=== PATIENT | male | born 1940 | race Caucasian/White ===

== ENCOUNTER 2020-02-16 18:06 | Inpatient (IN) | payer MEDICARE ==
[~2020-02-16] VITALS: Ht 190.5 cm; Wt 106.7 kg
[2020-02-16 19:03] LABS: BASOPHILS ABSOLUTE AUTO 0.07 K/mm3 (0.00-0.23); BASOPHILS PERCENT AUTO 1 % (0-2); EOSINOPHILS ABSOLUTE AUTO 0.11 K/mm3 (0.00-0.68); EOSINOPHILS PERCENT AUTO 1 % (0-6); Hematocrit 33.7 % (37.0-53.0); Hemoglobin 9.7 g/dL (13.5-17.5); IMMATURE GRAN ABSOLUTE AUTO 0.14 K/mm3 (0.00-0.10); IMMATURE GRAN PERCENT AUTO 1 % (0-1); LYMPHOCYTES ABSOLUTE AUTO 1.21 K/mm3 (0.84-5.20); LYMPHOCYTES PERCENT AUTO 8 % (21-46); MONOCYTES ABSOLUTE AUTO 1.32 K/mm3 (0.16-1.47); MONOCYTES PERCENT AUTO 9 % (4-13); Mean Corpuscular HGB 24.1 pg (26.0-34.0); Mean Corpuscular HGB Conc 28.8 g/dL (31.5-36.5); Mean Corpuscular Volume 84 fL (80-100); Mean Platelet Volume 9.8 fL (9.1-12.4); NEUTROPHILS ABSOLUTE AUTO 11.78 K/mm3 (1.96-9.15); NEUTROPHILS PERCENT AUTO 80 % (41-73); Platelet Count 281 K/mm3 (150-400); RDW Coefficient Variation 16.8 % (11.7-14.2); RDW Standard Deviation 51.6 fL (35.1-46.3); Red Blood Cell Count 4.02 M/mm3 (4.30-5.90); White Blood Cell Count 14.63 K/mm3 (4.00-11.30)
[2020-02-16 19:29] LABS: Alanine Aminotransfer (ALT/SGP 9 U/L (12-78); Albumin, Blood 3.1 g/dL (3.4-5.0); Albumin/Globulin Ratio 0.5 (0.8-1.8); Alk Phos 88 U/L (50-136); Anion Gap 7 mmol/L (6-16); Aspartate Aminotrans (AST/SGOT 10 U/L (12-37); Bilirubin, Total 0.8 mg/dL (0.1-1.0); Blood Urea Nitrogen 19 mg/dL (8-24); Bun/Creatinine Ratio 6.1 (12.0-20.0); CO2, Blood 34 mmol/L (21-32); Calcium, Blood 9.5 mg/dL (8.5-10.1); Chloride, Blood 96 mmol/L (98-108); Creatinine, Blood 3.09 mg/dL (0.60-1.20); Ethanol (Alcohol), Blood, Med <3 mg/dL; Globulin, Blood 5.7 g/dL (2.2-4.0); Glomerular Filtration Rate 21 (60-); Glucose, Blood 140 mg/dL (70-99); Potassium, Blood 3.3 mmol/L (3.5-5.5); Sodium, Blood 137 mmol/L (136-145); Total Protein, Blood 8.8 g/dL (6.4-8.2); Troponin I <0.015 ng/mL (0.000-0.040)
[2020-02-16] MEDS ORDERED: JANTOVEN5 MG PO (20:54)
[2020-02-16] MEDS ORDERED: FINA5 PO (20:55)
[2020-02-16] MEDS ORDERED: LIPITOR80 MG PO (20:55)
[2020-02-16] MEDS ORDERED: RENVELA800 MG PO (20:56)
[2020-02-16] MEDS ORDERED: METOPROLOL SUCC25 MG PO (20:56)
[2020-02-16] MEDS ORDERED: TAMSULOSIN HCL0.4 M1 PO (20:56)
[2020-02-16 22:09] LABS: PCO2 Arterial 44.6 mmHg (35-45); PO2 Arterial 60.5 mmHg (80-100); pH Blood Arterial 7.51 (7.35-7.45)
--- NOTE | 2020-02-17 00:52 | NUR ---
NEW ADMIT PT ARRIVED TO FLOOR AT 0042 BY STRETCHER. SLID PT OVER VIA 3 PER TO NEW BED. SHOWED PT HOW TO USE CALL LIGHT.
[2020-02-17] MEDS ORDERED: WARF6 (01:03)
[2020-02-17 02:37] LABS: Source, Urine Catheter
[2020-02-17 02:39] LABS: Bilirubin, Urine Neg (Neg); Blood, Urine 3+ (Neg); Glucose Qualitative, Urine Neg (Neg); Ketones, Urine Neg (Neg); Leukocyte Esterase, Urine Neg (Neg); Nitrite, Urine Neg (Neg); Protein, Urine 3+ (Neg); Urobilinogen, Urine NORM (Normal)
--- NOTE | 2020-02-17 02:59 | NUR ---
0106 PT ARRIVED TO ROOM FROM ER VIA GURNEY IN STABLE CONDITION. PT REPORTS R FA PAIN EARLIER BUT NONE NOW. PT HAS A FISTULA IN THE RFA WITH A DRESSING ON IT. PT HAS A PD CATH IN ABD. PT IS AAO X 1-2. TELE AFIB. 3L O2 NC AT 98%. DENIES SOB. NO OTHER APPARENT SIGNS OF DISTRESS. CALL LIGHT IS IN REACH.
--- NOTE | 2020-02-17 03:01 | NUR ---
PT LYING IN BED, AWAKE, NO APPARENT SIGNS OF DISTRESS. CALL LIGHT IS IN REACH.
[2020-02-17 03:05] LABS: Appearance, Urine Clear (Clear); Color, Urine Yellow (P-Yellow)
[2020-02-17 03:14] LABS: Bacteria Rare /hpf; Squamous Epithelial Cells Rare /hpf (Few); White Blood Cells, Urine Rare /hpf (0-5)
[2020-02-17 03:20] LABS: U Amphetamine Screen Not Detected; U Barbituate Screen Not Detected; U Benzodiazapine Screen Not Detected; U Buprenorphine Screen Not Detected; U Cannabinoids Screen Not Detected; U Cocaine Screen Not Detected; U Methadone Screen Not Detected; U Methamphetamine Screen Not Detected; U Opiates Screen Not Detected; U Oxycodone Screen DETECTED; U Phencyclidine Screen Not Detected; U Propoxyphene Screen Not Detected
[2020-02-17 05:04] LABS: BASOPHILS ABSOLUTE AUTO 0.06 K/mm3 (0.00-0.23); BASOPHILS PERCENT AUTO 1 % (0-2); EOSINOPHILS ABSOLUTE AUTO 0.18 K/mm3 (0.00-0.68); EOSINOPHILS PERCENT AUTO 2 % (0-6); Hematocrit 31.3 % (37.0-53.0); Hemoglobin 9.1 g/dL (13.5-17.5); IMMATURE GRAN ABSOLUTE AUTO 0.12 K/mm3 (0.00-0.10); IMMATURE GRAN PERCENT AUTO 1 % (0-1); LYMPHOCYTES ABSOLUTE AUTO 1.94 K/mm3 (0.84-5.20); LYMPHOCYTES PERCENT AUTO 16 % (21-46); MONOCYTES ABSOLUTE AUTO 1.14 K/mm3 (0.16-1.47); MONOCYTES PERCENT AUTO 9 % (4-13); Mean Corpuscular HGB 24.1 pg (26.0-34.0); Mean Corpuscular HGB Conc 29.1 g/dL (31.5-36.5); Mean Corpuscular Volume 83 fL (80-100); Mean Platelet Volume 9.6 fL (9.1-12.4); NEUTROPHILS ABSOLUTE AUTO 8.81 K/mm3 (1.96-9.15); NEUTROPHILS PERCENT AUTO 72 % (41-73); Platelet Count 276 K/mm3 (150-400); RDW Coefficient Variation 16.9 % (11.7-14.2); Red Blood Cell Count 3.77 M/mm3 (4.30-5.90); White Blood Cell Count 12.25 K/mm3 (4.00-11.30)
[2020-02-17 05:29] LABS: Albumin, Blood 2.9 g/dL (3.4-5.0); Albumin/Globulin Ratio 0.5 (0.8-1.8); Bilirubin, Total 0.6 mg/dL (0.1-1.0); Bun/Creatinine Ratio 5.8 (12.0-20.0); Calcium, Blood 9.7 mg/dL (8.5-10.1); Creatinine, Blood 3.8 mg/dL (0.60-1.20); Globulin, Blood 5.5 g/dL (2.2-4.0); Potassium, Blood 3.5 mmol/L (3.5-5.5); Total Protein, Blood 8.4 g/dL (6.4-8.2)
--- NOTE | 2020-02-17 05:47 | NUR ---
PT IS AAO X 2-3, ON 3L O2 NC AT 93%. DENIED ANY DISCOMFORT FOR THIS SHIFT. TELE IS AFIB. FISTULA IN RFA AND PD CATH IN ABD.
--- NOTE | 2020-02-17 06:43 | NUR ---
PT LYING IN BED, EYES CLOSED, APPEARS TO BE RESTING. BREATHING IS EVEN, UNLABORED. NO APPARENT SIGNS OF DITRESS. CALL LIGHT IS IN REACH. NO OTHER CHANGES THIS SHIFT.
--- NOTE | 2020-02-17 11:03 | NUR ---
DISLYSIS PT KEPT FORGETTING TO LEAVE HIS ARM STILL. WHICH MADE THE MACHINE STOP AMD ALARM. WHICH CAUSED THE BLOOD TO START CLOTTING. DC'ED TX BEFORE IT CLOTTED COMPLETELY AND CAUSED HIM TO LOSE A UNIT OF BLOOD.
[2020-02-17 11:40] LABS: Vancomycin, Random 12.9 ug/mL
[2020-02-17 16:36] LABS: International Normalized Ratio 1.15; Prothrombin Time Results 12.2 Sec (9.7-11.5)
--- NOTE | 2020-02-17 17:43 | NUR ---
Spiritual care note: Mr. Luciano was very sleepy and had trouble staying awake. He denied pain. Per admit trigger, I offered prayer. I held his hand, providing comfort and prayer for healing. I am uncertain he knew I was there. I will remain available to pt and family.
--- NOTE | 2020-02-17 19:23 | NUR ---
SHIFT SUMMARY: PATIENT'S MENTATION HAS MUCH IMPROVED THROUGHOUT THE DAY. DENIES PAIN. NO EVENTS ON TELEMETRY, AFIB 80'S WITH FREQUENT PVC'S. COUMADIN HAS BEEN RE-STARTED. BLADDER SCAN THIS MORNING WAS 153 ML. STARTED ON RENAL DIET, TOLERATING WELL. HAS HOME CPAP, NEEDS TO BE SET UP BY RT. RENAL U/S TO BE COMPLETED THIS EVENING. GETTING UP TO BSC WITH 2 PERSON ASSIST. HAD LARGE BM TODAY. HAD VISIT BY CAREGIVER ZARA TODAY.
[2020-02-18 04:43] LABS: BASOPHILS ABSOLUTE AUTO 0.07 K/mm3 (0.00-0.23); BASOPHILS PERCENT AUTO 1 % (0-2); EOSINOPHILS ABSOLUTE AUTO 0.38 K/mm3 (0.00-0.68); EOSINOPHILS PERCENT AUTO 3 % (0-6); Hematocrit 28.9 % (37.0-53.0); Hemoglobin 8.6 g/dL (13.5-17.5); IMMATURE GRAN ABSOLUTE AUTO 0.12 K/mm3 (0.00-0.10); IMMATURE GRAN PERCENT AUTO 1 % (0-1); LYMPHOCYTES ABSOLUTE AUTO 1.75 K/mm3 (0.84-5.20); LYMPHOCYTES PERCENT AUTO 15 % (21-46); MONOCYTES PERCENT AUTO 12 % (4-13); Mean Corpuscular HGB 24.7 pg (26.0-34.0); Mean Corpuscular HGB Conc 29.8 g/dL (31.5-36.5); Mean Corpuscular Volume 83 fL (80-100); Mean Platelet Volume 9.9 fL (9.1-12.4); NEUTROPHILS ABSOLUTE AUTO 8.37 K/mm3 (1.96-9.15); NEUTROPHILS PERCENT AUTO 69 % (41-73); Platelet Count 260 K/mm3 (150-400); RDW Coefficient Variation 16.6 % (11.7-14.2); RDW Standard Deviation 50.2 fL (35.1-46.3); Red Blood Cell Count 3.48 M/mm3 (4.30-5.90); White Blood Cell Count 12.09 K/mm3 (4.00-11.30)
[2020-02-18 04:58] LABS: International Normalized Ratio 1.22; Prothrombin Time Results 12.9 Sec (9.7-11.5)
[2020-02-18 05:13] LABS: Albumin, Blood 2.7 g/dL (3.4-5.0); Anion Gap 5 mmol/L (6-16); Blood Urea Nitrogen 26 mg/dL (8-24); Bun/Creatinine Ratio 6.2 (12.0-20.0); CO2, Blood 34 mmol/L (21-32); Calcium, Blood 9.5 mg/dL (8.5-10.1); Chloride, Blood 96 mmol/L (98-108); Creatinine, Blood 4.16 mg/dL (0.60-1.20); Glomerular Filtration Rate 15 (60-); Glucose, Blood 90 mg/dL (70-99); Magnesium, Blood 2.3 mg/dL (1.6-2.4); Potassium, Blood 3.6 mmol/L (3.5-5.5); Sodium, Blood 135 mmol/L (136-145)
--- NOTE | 2020-02-18 07:59 | NUR ---
RUBBER AND PLASTICS WORKER SUMMARY Patient kept CPAP on all night, but still had problems with erratic breathing on a 6 liter bleed in. MD informed of Pal Perez breathing as well as gram positive cocci in clusters (*in both bottles). No new orders noted. Patient had no complaints of discomfort overnight
[2020-02-18 13:55] LABS: Vancomycin, Random 25.6 ug/mL
--- NOTE | 2020-02-18 14:41 | NUR ---
Echocardiogram completed.
--- NOTE | 2020-02-18 16:10 | NUR ---
HE HAS SLEPT, MOSTLY WITH HIS CPAP ON EXCEPT WHEN AWAKE TO EAT. HE IS ALSO HAVING A COGNITIVE EVALUATION NOW, AND HAS BEEN CONSULTED BY FOR A MARYJO TOMORROW D/T THE EARLIER ECHO RESULTS. HIS FIREND ZARA IS AT THE BEDSIDE. SHE HAS BEEN HIS CAREGIVER SINCE HE CANNOT TAKE CARE OF HIMSELF. HE HAS DENIED PAIN OR SOB. HE REQUIRES 3L NC THOUGH OR 5L BLEED IN TO HIS CPAP.
--- NOTE | 2020-02-18 18:25 | NUR ---
HE IS BACK IN BED AFTER DINNER. BED ALARM ON. HE HAD A CONSULT FROM TODAY D/T HIS ABNORMAL ECHO. PLAN FOR NPO AFTER MIDNIGHT AND MARYJO IN AM. NO FEVER.TELE AFIB. COUMADIN HELD D/T AM PROCEDURE. NO FISTULA TODAY.
[2020-02-19 05:32] LABS: BASOPHILS ABSOLUTE AUTO 0.08 K/mm3 (0.00-0.23); BASOPHILS PERCENT AUTO 1 % (0-2); EOSINOPHILS ABSOLUTE AUTO 0.41 K/mm3 (0.00-0.68); EOSINOPHILS PERCENT AUTO 4 % (0-6); Hemoglobin 8.2 g/dL (13.5-17.5); IMMATURE GRAN ABSOLUTE AUTO 0.14 K/mm3 (0.00-0.10); IMMATURE GRAN PERCENT AUTO 1 % (0-1); LYMPHOCYTES ABSOLUTE AUTO 1.85 K/mm3 (0.84-5.20); LYMPHOCYTES PERCENT AUTO 17 % (21-46); MONOCYTES ABSOLUTE AUTO 0.98 K/mm3 (0.16-1.47); MONOCYTES PERCENT AUTO 9 % (4-13); Mean Corpuscular HGB Conc 29.3 g/dL (31.5-36.5); Mean Corpuscular Volume 82 fL (80-100); Mean Platelet Volume 9.9 fL (9.1-12.4); NEUTROPHILS PERCENT AUTO 69 % (41-73); Platelet Count 267 K/mm3 (150-400); RDW Coefficient Variation 16.8 % (11.7-14.2); RDW Standard Deviation 49.9 fL (35.1-46.3); Red Blood Cell Count 3.42 M/mm3 (4.30-5.90); White Blood Cell Count 10.96 K/mm3 (4.00-11.30)
[2020-02-19 05:43] LABS: International Normalized Ratio 1.22; Prothrombin Time Results 12.9 Sec (9.7-11.5)
[2020-02-19 05:53] LABS: Albumin, Blood 2.7 g/dL (3.4-5.0); Anion Gap 7 mmol/L (6-16); Blood Urea Nitrogen 41 mg/dL (8-24); Bun/Creatinine Ratio 7.4 (12.0-20.0); CO2, Blood 30 mmol/L (21-32); Calcium, Blood 9.5 mg/dL (8.5-10.1); Chloride, Blood 97 mmol/L (98-108); Creatinine, Blood 5.51 mg/dL (0.60-1.20); Glomerular Filtration Rate 11 (60-); Glucose, Blood 98 mg/dL (70-99); Magnesium, Blood 2.4 mg/dL (1.6-2.4); Phosphorus, Blood 4.3 mg/dL (2.5-4.9); Potassium, Blood 3.6 mmol/L (3.5-5.5); Sodium, Blood 134 mmol/L (136-145)
[2020-02-19 16:35] LABS: Vancomycin, Random 15.7 ug/mL
[2020-02-19 17:10] LABS: Automated BF WBC Count 0.062 K/mm3 (0-999); Body Fluid WBC Count 62 /mm3 (0-999)
[2020-02-19 17:18] LABS: Appearance, Body Fluid Clear (Clear); Color, Body Fluid No color (None-Yellow); RBC Count, Body Fluid 5 /mm3 (0-0)
--- NOTE | 2020-02-19 17:25 | NUR ---
HE HAS HAD A VERY BUSY DAY. HE STARTED NPO , HAD A MARYJO AND LATER A CT OF THE ABD. HE THEN WAS EVALUATED BY PT AND ATE LUNCH. HE WAS THEN DIALIZED IN HIS ROOM. HE HAD A BLD CULT DRAWN FROM HIS FISTULA SITE AND A FLUID CULT SENT ON PERITONEAL FLUID AFTER THE DIALYSIS NURSE LET FLUID DWELL IN HIS ABD FOR A COUPLE OF HRS. NO FEVER. I NOTIFIED OF THE MARYJO RESULT (VEGETATION ON THE AORTIC VALVE) AND LATER THIS AFTERNOON, ANOTHER POS PERIPH BLD CULTURE RESULT FROM HIS 2ND SET OF BLD CULTURES. HE WILL GET A VANCO DOSE SOON. HIS FRIEND ZARA WHO TAKES CARE OF HIM IN HER HOME VISITED FOR A LITTLE WHILE TODAY IN BETWEEN TESTS. TELE WAS AFIB AND WAS LATER DC'D.HE HAS WORN HIS NC 3L MOST OF THE DAY, NOT HIS CPAP. CONTINUOUS BIOX STILL ON.
[2020-02-19 17:36] LABS: Total Cell Count, Body Fluid 100
--- NOTE | 2020-02-19 17:55 | NUR ---
HEMODIALYSIS ORDERED TODAY. IN CONJUNCTION WITH HD, DR DOOLEY ORDERED FLUID PLACED IN PERITONEUM FOR 2 HOUR DWELL AND THEN CULTURE, GRAMSTAIN, CELL COUNT AND DIFFERENTIAL. WHEN PD CATHETER ACCESSED IT WAS DISCOVERED THAT THERE WAS ONLY A CAP ON THE LINE AND NO TRANSFER SET ATTACHHED. TRANSFER SET WAS INSTALLED PER DAVITA PROCEDURE. CAPD MANUAL EXCHANGE PERFORMED AND 2 LITERS WARMED DIANEAL INSTALLED IN PERIOTEUM FOR DWELL. AT THE END OF HD THE EFFLUENT SAMPLE WAS OBTAINED AND PT'S ABD DRAINED TO "DRY" EXIT SITE CARE WAS DONE AND NEW STERILE DRESSING WAS APPLIED.
--- NOTE | 2020-02-19 19:00 | NUR ---
ASSUMED CARE RECEIVED REPORT FROM CANDIDA RUSS. ASSUMED CARE OF PT. RESTING COMFORTABLY AT THIS TIME, NO S/S ACUTE DISTRESS NOTED, PLACED PT ON CPAP, O2 SATS MAINTAINING >92%. PT RESTING AT THIS TIME. DENIES NEEDS. CALL LIGHT, POSSESSIONS IN REACH, BED IN LOW POSITION WITH ALARMS ON. WCTM, PROVIDE CARE NEEDED T/O NIGHT.
[2020-02-20 05:26] LABS: Hematocrit 29.1 % (37.0-53.0); Hemoglobin 8.4 g/dL (13.5-17.5)
[2020-02-20 05:40] LABS: International Normalized Ratio 1.26; Prothrombin Time Results 13.3 Sec (9.7-11.5)
[2020-02-20 06:01] LABS: Albumin, Blood 2.7 g/dL (3.4-5.0); Anion Gap 6 mmol/L (6-16); Blood Urea Nitrogen 31 mg/dL (8-24); Bun/Creatinine Ratio 6.3 (12.0-20.0); CO2, Blood 31 mmol/L (21-32); Calcium, Blood 9.5 mg/dL (8.5-10.1); Chloride, Blood 100 mmol/L (98-108); Creatinine, Blood 4.95 mg/dL (0.60-1.20); Glomerular Filtration Rate 12 (60-); Glucose, Blood 102 mg/dL (70-99); Magnesium, Blood 2.3 mg/dL (1.6-2.4); Phosphorus, Blood 3.9 mg/dL (2.5-4.9); Potassium, Blood 3.9 mmol/L (3.5-5.5); Sodium, Blood 137 mmol/L (136-145)
--- NOTE | 2020-02-20 07:00 | NUR ---
SHIFT SUMMARY PT ASLEEP AT THIS TIME, NO S/S ACUTE DISTRESS NOTED. WAS MONITORED EVERY 1-2 HOURS WITH NEEDS MET. VS REVIEWED, STABLE. PT WORE CPAP T/O MUCH OF THE NIGHT, ALTERNATED WITH NC WHEN NEEDED, TOLERATED WELL. SLEPT T/O NIGHT. DENIES NEEDS AT THIS TIME. CALL LIGHT, POSSESSIONS IN REACH, BED IN LOW POSITION WITH ALARMS ON. REPORT GIVEN TO CANDIDA LEWIS.
[2020-02-20 13:40] LABS: Vancomycin, Random 20.8 ug/mL
--- NOTE | 2020-02-20 19:05 | NUR ---
ASSUMED CARE RECEIVED REPORT FROM CANDIDA LEWIS, NO ACUTE CHANGES REPORTED. PT IN NO ACUTE DISTRESS AT THIS TIME, RESPS EVEN AND UNLABORED. RESTING COMFORTABLY, DENIES NEEDS. CALL LIGHT, POSSESSIONS IN REACH, BED IN LOW POSITION WITH ALARMS ON. WCTM.
[2020-02-21 05:12] LABS: Hematocrit 32.6 % (37.0-53.0); Hemoglobin 9.3 g/dL (13.5-17.5)
[2020-02-21 05:25] LABS: International Normalized Ratio 1.49; Prothrombin Time Results 15.6 Sec (9.7-11.5)
[2020-02-21 05:34] LABS: Anion Gap 9 mmol/L (6-16); Blood Urea Nitrogen 32 mg/dL (8-24); Bun/Creatinine Ratio 6.6 (12.0-20.0); CO2, Blood 29 mmol/L (21-32); Calcium, Blood 10.5 mg/dL (8.5-10.1); Chloride, Blood 102 mmol/L (98-108); Creatinine, Blood 4.83 mg/dL (0.60-1.20); Glomerular Filtration Rate 12 (60-); Glucose, Blood 112 mg/dL (70-99); Magnesium, Blood 2.2 mg/dL (1.6-2.4); Potassium, Blood 3.3 mmol/L (3.5-5.5); Sodium, Blood 140 mmol/L (136-145)
--- NOTE | 2020-02-21 07:42 | NUR ---
SHIFT SUMMARY PT RESTING COMFORTABLY, NO S/S ACUTE DISTRESS NOTED. WAS MONITORED EVERY 1-2 HOURS WITH NEEDS MET. VS REVIEWED, STABLE. O2 SATS STABLE ON CPAP, PT WORE T/O NIGHT. AM LABS REVIEWED, SPOKE TO DR. DOOLEY REGARDING PT'S LOW POTASSIUM AND PHOS, ORDERS RECEIVED. PT DENIES NEEDS AT THIS TIME. CALL LIGHT, POSSESSIONS IN REACH, BED IN LOW POSITION WITH ALARMS ON, REPORT GIVEN TO CANDIDA LEWIS.
--- NOTE | 2020-02-21 12:12 | NUR ---
AM MEDS PT NOT WAKING ENOUGH TO SAFELY SWALLOW PO MEDS, DR NARANJO IS AWARE. PT FIGHTS TURNS AND CHANGES WITHOUT WAKING ALL THE WAY. WILL CONTINUE TO MONITOR
[2020-02-21 15:51] LABS: Base Excess Venous 10.5 mmol/L; Bicarbonate Venous 32.8 mmol/L (24.0-30.0); PCO2 Venous 48.8 mmHg (38-42); PO2 Venous 43.8 mmHg (38-42); pH Blood Venous 7.46 (7.34-7.37)
[2020-02-21 16:17] LABS: Bun/Creatinine Ratio 6.2 (12.0-20.0); Calcium, Blood 9.9 mg/dL (8.5-10.1); Creatinine, Blood 5.46 mg/dL (0.60-1.20); Potassium, Blood 3.9 mmol/L (3.5-5.5)
--- NOTE | 2020-02-21 16:40 | NUR ---
PT NOT AWAKENING, RT INTO ROOM CHECK CPAP, PT WITH 100% 02 SATS, 02 BLEED IN TO CPAP STOPPED. PT MAINTAINING SATS BETWEEN 92-94% RA ON CPAP. DR NARANJO CALLED REGARDING PT AND ORDERS OBTAINED FOR VBG AND CHEM 8. MESSAGE LEFT FOR DR NARANJO LAB RESULTS.
--- NOTE | 2020-02-21 17:30 | NUR ---
DR NARANJO AT BEDSIDE TO REVIEW PT LABS AND VITAL SIGNS. NO NEW ORDERS, WILL CONTINUE TO MONITOR PT OVERNIGHT
--- NOTE | 2020-02-21 18:31 | NUR ---
PT HAS BEEN SLEEPING, WHEN CHANGED AND/OR REPOSITIONED HE WILL OPEN HIS EYES SOMEWHAT AND GRAB THE BED RAILS TO RESIST BEING MOVED. HAS BEEN NON VERBAL ALL SHIFT AND UNABLE TO TAKE PO MEDS. DR NARANJO IS AWARE, PT TO BE MONITOR OVER NIGHT FOR CHANGES/IMPROVEMENTS. REMAINS ON CPAP, WILL CONTINUE TO MONITOR AND REPORT TO ONCOMING RN.
--- NOTE | 2020-02-21 19:10 | NUR ---
ASSUMED CARE RECEIVED REPORT FROM CANDIDA LEWIS. PT SOMNOLENT, AROUSES WEAKLY TO VERBAL STIMULI. NOT FOLLOWING COMMANDS AT THIS TIME, VS AND O2 SATS STABLE, PT ON CPAP AT THIS TIME. NO OTHER SIGNS OF DISTRESS NOTED. WEAVER AXMINSTER AWARE. WILL CONTINUE TO MONITOR PT CONDITION.
--- NOTE | 2020-02-21 21:00 | NUR ---
PT REMAINS SOMNOLENT, BUT BEGINNING TO BE INCREASINGLY RESPONSIVE TO VERBAL STIMULI, FOLLOWING COMMANDS. VS AND O2 SATS REMAIN STABLE. CONTINUE TO MONITOR.
--- NOTE | 2020-02-22 03:16 | NUR ---
SPOKE TO DR. PARKER REGARDING PT'S CONTINUED SOMNOLENCE. ORDERS RECEIVED. CONTINUE TO MONITOR.
--- NOTE | 2020-02-22 03:16 | NUR ---
THIS RN ASSESSING PT, PT UNRESPONSIVE TO VERBAL STIMULI. NAIL BED PRESSURE AND STERNAL RUB APPLIED, PT LOCALIZING PAIN, MOANING, BUT NOT FOLLOWING COMMANDS AT THIS TIME; NON VERBAL. EDUCATION PROFESSIONAL IN ROOM ASSESSING PT. WILL NOTIFY PROVIDER OF CHANGE IN PT CONDITION.
[2020-02-22 03:46] LABS: BASOPHILS ABSOLUTE AUTO 0.07 K/mm3 (0.00-0.23); BASOPHILS PERCENT AUTO 1 % (0-2); EOSINOPHILS ABSOLUTE AUTO 0.29 K/mm3 (0.00-0.68); EOSINOPHILS PERCENT AUTO 2 % (0-6); Hematocrit 30.9 % (37.0-53.0); Hemoglobin 8.8 g/dL (13.5-17.5); IMMATURE GRAN ABSOLUTE AUTO 0.13 K/mm3 (0.00-0.10); IMMATURE GRAN PERCENT AUTO 1 % (0-1); LYMPHOCYTES ABSOLUTE AUTO 1.67 K/mm3 (0.84-5.20); LYMPHOCYTES PERCENT AUTO 14 % (21-46); MONOCYTES ABSOLUTE AUTO 1.09 K/mm3 (0.16-1.47); MONOCYTES PERCENT AUTO 9 % (4-13); Mean Corpuscular HGB 24.2 pg (26.0-34.0); Mean Corpuscular HGB Conc 28.5 g/dL (31.5-36.5); Mean Corpuscular Volume 85 fL (80-100); Mean Platelet Volume 9.7 fL (9.1-12.4); NEUTROPHILS ABSOLUTE AUTO 8.78 K/mm3 (1.96-9.15); NEUTROPHILS PERCENT AUTO 73 % (41-73); Platelet Count 292 K/mm3 (150-400); RDW Coefficient Variation 17.4 % (11.7-14.2); RDW Standard Deviation 54.3 fL (35.1-46.3); Red Blood Cell Count 3.63 M/mm3 (4.30-5.90); White Blood Cell Count 12.03 K/mm3 (4.00-11.30)
[2020-02-22 03:49] LABS: Base Excess Venous 9.4 mmol/L; Bicarbonate Venous 31.6 mmol/L (24.0-30.0); PCO2 Venous 50.4 mmHg (38-42); PO2 Venous 41.2 mmHg (38-42); pH Blood Venous 7.43 (7.34-7.37)
[2020-02-22 03:57] LABS: Hematocrit 30.5 % (37.0-53.0); Hemoglobin 8.9 g/dL (13.5-17.5)
[2020-02-22 04:01] LABS: International Normalized Ratio 1.7; Prothrombin Time Results 17.7 Sec (9.7-11.5)
[2020-02-22 04:19] LABS: Anion Gap 8 mmol/L (6-16); Blood Urea Nitrogen 36 mg/dL (8-24); Bun/Creatinine Ratio 6.2 (12.0-20.0); CO2, Blood 32 mmol/L (21-32); Calcium, Blood 10.2 mg/dL (8.5-10.1); Chloride, Blood 100 mmol/L (98-108); Creatinine, Blood 5.83 mg/dL (0.60-1.20); Glomerular Filtration Rate 10 (60-); Glucose, Blood 99 mg/dL (70-99); Magnesium, Blood 2.4 mg/dL (1.6-2.4); Potassium, Blood 3.7 mmol/L (3.5-5.5); Sodium, Blood 140 mmol/L (136-145)
[2020-02-22 04:22] LABS: Phosphorus, Blood 4.8 mg/dL (2.5-4.9)
--- NOTE | 2020-02-22 04:45 | NUR ---
SPOKE TO DR. PARKER REGARDING PT'S LAB RESULTS AND ONGOING SOMNOLENCE. ORDERS RECEIVED FOR HEAD CT. CONTINUE TO MONITOR.
--- NOTE | 2020-02-22 07:15 | NUR ---
SHIFT SUMMARY PT RESTING AT THIS TIME, NO S/S ACUTE DISTRESS NOTED, WAS MONITORED EVERY 1-2 HOURS WITH NEEDS MET. SOMNOLENCE APPEARS TO BE IMPROVING, PT RESISTANT TO CARES, PUSHING AWAY STAFF. VS REVIEWED, STABLE. CONTINUES ON CPAP. DR. PARKER SAW PT AND REQUESTED PT HAVE HDY TODAY. THIS RN SPOKE TO DR. DOOLEY, PT TO BE DIALYZED THIS AM. PT DENIES NEEDS AT THIS TIME, CALL LIGHT, POSSESSIONS IN REACH, BED IN LOW POSITION WITH ALARMS ON. REPORT GIVEN TO CANDIDA MINOR.
--- NOTE | 2020-02-22 09:00 | NUR ---
PT ON DIALYSIS AT 0900
--- NOTE | 2020-02-22 12:00 | NUR ---
PT CAME BACK FROM DIALYSIS. VSS
[2020-02-22 14:39] LABS: Vancomycin, Random 17.7 ug/mL
--- NOTE | 2020-02-22 16:34 | NUR ---
I CALLED THE PT SON TO GET A CONSENT FOR ME TO TALK TO ZARA WHO IS THE FRIEND/CAREGIVER/PERSON WHO LIVES WITH THIS PT.
--- NOTE | 2020-02-22 18:06 | NUR ---
PT IS HAVING AN MRI @1800
--- NOTE | 2020-02-22 18:13 | NUR ---
SHIFT SUMMARY PT IS MORE AWAKE TODAY AFTER DIALYSIS THIS MORNING; HOWEVER HARD TO UNDERSTAND AND COMMUNICATE; VERY CONFUSED. PT SATS ARE ABOVE 90S; USES CPAP OR NC @ 2L. PT FRIEND ZARA CAME BY TO VISIT THE PT. MRI DONE TODAY. PT IS VERY RESISTANT WHEN CHANGING DEPENDS- 3P MAX ASSIST. BED IS IN THE LOWEST POSITION AND CALL LIGHTS WITHIN REACH
[2020-02-23 05:30] LABS: Hematocrit 34.2 % (37.0-53.0); Hemoglobin 9.8 g/dL (13.5-17.5)
[2020-02-23 05:49] LABS: International Normalized Ratio 1.98; Prothrombin Time Results 20.4 Sec (9.7-11.5)
[2020-02-23 06:02] LABS: Albumin, Blood 2.9 g/dL (3.4-5.0); Anion Gap 6 mmol/L (6-16); Blood Urea Nitrogen 29 mg/dL (8-24); Bun/Creatinine Ratio 5.6 (12.0-20.0); CO2, Blood 32 mmol/L (21-32); Calcium, Blood 9.9 mg/dL (8.5-10.1); Chloride, Blood 99 mmol/L (98-108); Creatinine, Blood 5.14 mg/dL (0.60-1.20); Glomerular Filtration Rate 12 (60-); Glucose, Blood 84 mg/dL (70-99); Magnesium, Blood 2.3 mg/dL (1.6-2.4); Phosphorus, Blood 4.5 mg/dL (2.5-4.9); Potassium, Blood 3.6 mmol/L (3.5-5.5); Sodium, Blood 137 mmol/L (136-145)
--- NOTE | 2020-02-23 06:02 | NUR ---
SHIFT SUMMARY- PT. ASLEEP MOST OF THE NIGHT, NO APPARENT DISTRESS NOTED. ALERT W/SOME CONFUSION. PT. RESISTS REPOSITIONING AND ATTENDS CHANGE. CARE DONE WITH 3 PERSON ASSIST. NO ACUTE EVENTS OVERNIGHT. DENIED ANY NEEDS AT THIS TIME. CALL LIGHT WITHIN REACH, SIDE RAILS UPX2, AND BED ALARM ON FOR SAFETY. WILL CONT TO MONITOR.
--- NOTE | 2020-02-23 13:30 | NUR ---
Met pt. at lunch and reports doing fine prayed for pt.
[2020-02-23 14:39] LABS: Vancomycin, Random 18.5 ug/mL
--- NOTE | 2020-02-23 14:40 | NUR ---
PT SON- PAULY CALLED TO GET AN UPDATE ABOUT THE PT. HE STATED THAT HE WANTED TO BE PART OF THE CARE FOR HIS DAD. HE ALSO STATED THAT THE PT HAS BEEN LIVING WITH ZARA WHO IS A FRIEND OF HIS DAD FOR A LONG TIME. HE'S THINKING THAT WITH THE PT MENTAL STATUS AND CONDITION RIGHT NOW- THE DAD WILL BENEFIT MORE TO GO A FACILITY. HE STATED THAT HE WAS WAITING FOR SOMEONE TO CALL HIM WHETHER IT IS THE DR OR THE CORPORATE LOGISTICS MANAGER; HE ALSO STATED THAT HE MIGHT NEED HELP IN TERMS OF THE PROCESS OF PLACEMENT FOR THE PT. PAULY STATED THAT HE NEEDS TO HAVE A MEETING WITH HIS BROTHER IN TERMS OF THIS MATTER. I CALLED DR CHRISTIE AND GAVE THE SON'S PHONE NUMBER TO CALL.
--- NOTE | 2020-02-23 17:42 | NUR ---
SHIFT SUMMARY PT MORE AWAKE TODAY AND CAN ANSWER SOME QUESTIONS; INTERMITTENT CONFUSION AND DOES NOT KNOW THAT HE IS AT THE HOSPITAL. NO C/O OF PAIN, N&V. PT TAKES MEDICATIONS WITH APPLESAUCE. PT SON CALLED AND RECEIVED AN UPDATE OF THIS PT TODAY-SEE NOTES. PT USES CPAP BLEED IN OR NC 2-3L; SATS LOW 90S. CONSISTENTLY REMINDING THE PT TO KEEP NA NC ON HIS NOSE. BED IS IN THE LOWEST POSITION AND CALL LIGHTS WITHIN REACH.
--- NOTE | 2020-02-23 22:57 | NUR ---
AWAKE, ASSISTED WITH HS MEDS. CPAP IN USE. CALL LIGHT IN REACH
--- NOTE | 2020-02-24 03:43 | NUR ---
SHIFT SUMMARY HAS BEEN RESTING QUIETLY WITH FEW INTERRRUPTIONS. CPAP IN USE. O2 SATS ABOVE 90% WITH CONTINUOUS PULSE OX. NO NOTED ACUTE DISTRESS AT THIS WRITING. CALL LIGHT IN REACH
[2020-02-24 05:40] LABS: Hematocrit 30.3 % (37.0-53.0); Hemoglobin 8.8 g/dL (13.5-17.5)
[2020-02-24 05:55] LABS: International Normalized Ratio 2.11; Prothrombin Time Results 21.6 Sec (9.7-11.5)
[2020-02-24 06:04] LABS: Albumin, Blood 2.7 g/dL (3.4-5.0); Anion Gap 7 mmol/L (6-16); Blood Urea Nitrogen 54 mg/dL (8-24); Bun/Creatinine Ratio 7.9 (12.0-20.0); CO2, Blood 31 mmol/L (21-32); Calcium, Blood 9.8 mg/dL (8.5-10.1); Chloride, Blood 98 mmol/L (98-108); Creatinine, Blood 6.83 mg/dL (0.60-1.20); Glomerular Filtration Rate 8 (60-); Glucose, Blood 101 mg/dL (70-99); Magnesium, Blood 2.6 mg/dL (1.6-2.4); Phosphorus, Blood 5.9 mg/dL (2.5-4.9); Potassium, Blood 3.9 mmol/L (3.5-5.5); Sodium, Blood 136 mmol/L (136-145)
--- NOTE | 2020-02-24 09:47 | NUR ---
VALORIE COATS ,SOFTWARE QUALITY TEST ENGINEER, HOLD DAY MEDS TILL AFTER DIALYSIS.
[2020-02-24 11:42] LABS: Vancomycin, Random 11.8 ug/mL
--- NOTE | 2020-02-24 12:27 | NUR ---
P{t. is in bed resting waiting for surgery prayed for pt.
--- NOTE | 2020-02-24 12:28 | NUR ---
Pt. is resting and is doing much better offered prayers.
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
--- NOTE | 2020-02-24 18:40 | NUR ---
ALERT TO SELF. INCONTINENT. TURNED Q 2 HOURS. SEE PREVIOUS NOTE ABOUT CAREGIVER. PER THIS IS THE MOST PATIENT HAS TALKED, POSSIBLY BACK TO BASELINE. CONTINUOUS SAT ON. TM
--- NOTE | 2020-02-25 03:26 | NUR ---
SHIFT SUMMARY: 79 Y/O MALE RESTED COMFORTABLY IN BED ALL SHIFT; DENIES PAIN OR NAUSEA; ALERT AND ORIENTED X 3, ABLE TO FOLLOW SIMPLE VERBAL COMMANDS; WEARING O2 AT 2L/M PER NASAL CANNULA WITH CONTINUOUS PULSE OX AVERAGING 93%; BED ALARM APPLIED FOR SAFETY, BED LOW POSITION WITH CALL LIGHT AT SIDE.
[2020-02-25 05:42] LABS: International Normalized Ratio 2.2; Prothrombin Time Results 22.5 Sec (9.7-11.5)
[2020-02-25 09:05] LABS: Albumin, Blood 2.8 g/dL (3.4-5.0); Anion Gap 6 mmol/L (6-16); Blood Urea Nitrogen 50 mg/dL (8-24); Bun/Creatinine Ratio 8.8 (12.0-20.0); CO2, Blood 32 mmol/L (21-32); Calcium, Blood 9.6 mg/dL (8.5-10.1); Chloride, Blood 101 mmol/L (98-108); Creatinine, Blood 5.66 mg/dL (0.60-1.20); Glomerular Filtration Rate 10 (60-); Glucose, Blood 93 mg/dL (70-99); Magnesium, Blood 2.5 mg/dL (1.6-2.4); Phosphorus, Blood 4.6 mg/dL (2.5-4.9); Potassium, Blood 3.9 mmol/L (3.5-5.5); Sodium, Blood 139 mmol/L (136-145)
--- NOTE | 2020-02-25 16:34 | NUR ---
ALERT. ORIENTED X 1-3. CONFUSED AT TIMES. APPEARS TO BE ORIENTED WHEN SON IS VISITING. ONE PERSON ASSIST TO BSC AND CHAIR, BUT NEEDED 2 PERSON ASSIST WITH GAIT BELT AND WALKER TO GET BACK TO BED. UNLABORED RESPIRATIONS. ON 2 LPM OXYGEN. PERITONEAL DIALYSIS TUBING TAPED TO ABD WITH DRESSING AND IS DRY AND INTACT. FISTULA WITH BRUIT AND THRILL. PATIENT PULLED PERIPHERAL IV YESTERDAY. PER PATIENT WILL NEED ANTIBIOTICS FOR 6-8 WEEKS. MD AWARE NO ANTIBIOTICS ON EMAR AT THIS TIME. PHARMACY IS MANAGING VANCO. NO IV RESTARTED WILL NEED PICC LINE PLACEMENT AND CAMPUS INTERVIEWS INTERN AWARE. COOPERATIVE. PLEASANT. WCTM
--- NOTE | 2020-02-25 22:23 | NUR ---
1999 79 Y/O MALE RESTING COMFORTABLY IN BED; DENIES PAIN OR NAUSEA; ALERT AND ORIENTED 2, ABLE TO FOLLOW ALL SIMPLE VERBAL COMMANDS.
--- NOTE | 2020-02-26 03:11 | NUR ---
SHIFT SUMMARY: 79 Y/O OBESE MALE RESTED COMFORTABLY ALL SHIFT WHILE WEARING O2 AT 2L/M PER NASAL CANNULA; PT ALERT AND ORIENTED X 2 AND ABLE TO FOLLOW SIMPLE VERBAL COMMANDS; HAPPY AND COOPERATIVE; BED ALARM APPLIED FOR SAFETY, BED LOW POSITION WITH CALL LIGHT AT SIDE.
[2020-02-26 05:35] LABS: Hematocrit 28.5 % (37.0-53.0); Hemoglobin 8.3 g/dL (13.5-17.5)
[2020-02-26 05:51] LABS: International Normalized Ratio 2.63; Prothrombin Time Results 26.6 Sec (9.7-11.5)
[2020-02-26 06:05] LABS: Albumin, Blood 2.7 g/dL (3.4-5.0); Anion Gap 7 mmol/L (6-16); Blood Urea Nitrogen 69 mg/dL (8-24); Bun/Creatinine Ratio 9.9 (12.0-20.0); CO2, Blood 30 mmol/L (21-32); Calcium, Blood 9.7 mg/dL (8.5-10.1); Chloride, Blood 98 mmol/L (98-108); Creatinine, Blood 6.96 mg/dL (0.60-1.20); Glomerular Filtration Rate 8 (60-); Glucose, Blood 90 mg/dL (70-99); Magnesium, Blood 2.6 mg/dL (1.6-2.4); Potassium, Blood 3.8 mmol/L (3.5-5.5); Sodium, Blood 135 mmol/L (136-145)
[2020-02-26 13:13] LABS: Influenza A, PCR Negative (NEGATIVE); Influenza B, PCR Negative (NEGATIVE); Resp Syncytial Virus, PCR Negative (NEGATIVE); SARS-Cov-2 (COVID-19) PCR, MMC Negative (NEGATIVE)
--- NOTE | 2020-02-26 13:45 | NUR ---
PER DR CHRISTIE DISCUSSION. CHANGE WARFARIN TO 5 MG PO DAILY. FOLLOW WITH INR 3 X PER WEEK. RUN IV VANCO AFTER DIALYSIS IF ON DIALYSIS DAYS. TO PLACE PICC PRIOR TO D.C. DISCUSSED WITH SALVADOR VALENTIN. WILL PUT IN ORDERS.
[2020-02-26] MEDS ORDERED: Acetaminophen650 M1 PO (13:58)
[2020-02-26] MEDS ORDERED: BISA10S PR (13:59)
[2020-02-26] MEDS ORDERED: DOCU100 PO (14:00)
[2020-02-26] MEDS ORDERED: DULCOLAX400 MG/5 M PO (14:01)
[2020-02-26] MEDS ORDERED: SENN187 PO (14:06)
[2020-02-26] MEDS ORDERED: VANCOMYCIN HCL1 G1 (14:08)
[2020-02-26 14:10] LABS: Vancomycin, Random 14.3 ug/mL
[2020-02-26] MEDS ORDERED: PROBIOTIC PO (14:11)
--- NOTE | 2020-02-26 16:23 | NUR ---
CALLED REPORT TO OSCAR AT [facility]. PICC PLACED BY Marlon. VERIFIED BY IN XRAY TO PRANAY TIRADO. PER KYLER TIRADO, WE ARE TO [facility] TO [facility]. CALL TO ADVISE. CALLED OSCAR WITH INFO.
--- NOTE | 2020-02-26 17:12 | NUR ---
PT WHEELED TO DOOR BY BRANDO TIRADO AND STEWART FUENTES. LEFT ROOM AT 1712. BELONGINGS WITH PT. TO [facility]. PICC WAS PLACED. NOTICES SENT WITH PT.
--- NOTE | 2020-02-26 21:20 | NUR ---
DIALYSIS TOOK MACHINE UP TO PT'S ROOM AROUND 0900. WHILE PREPARING MACHINE PT STATED HE MEEDED TO GO TO THE BR FOR A BM. HIS RN AND WATERMELON HARVESTING SUPERVISOR GOT HIM UP ON TO A POTTY CHAIR. BECKY'S BIOMED CALLED FROM DOWNSTAIRS AND SAID HE HAD A PART FOR THE WRIGHT DOOR. HE CAME UP AND PUT IT ON. THE MURSE AND WATERMELON HARVESTING SUPERVISOR GOT THE PT TO BED FROM THE POTTY CHAIR. I HAD SOME DIFFICULTY WITH THE VENOUS NEEDLE. I GOT THE PT ON AT 1030.
== END 2020-02-26 17:10 | DRG 871 ==
LOC: ER 18:06 → MEDS 18:07 → ENPENDDIS 02-26 11:18 → MEDS 02-26 17:10
PROVIDERS: Emergency Medicine; Family Medicine; Hospitalist; Internal Medicine; Internal Medicine Infectious Disease; Internal Medicine Nephrology; Nurse Practitioner Acute Care; Pharmacist; ADMIT Internal Medicine
PROC: 5A09357 Assistance with Respiratory Ventilation, Less than 24 Consecutive Hours, Continuous Positive Airway Pressure (ICD-10-PCS; principal; 2020-02-18)
PROC: B24BZZ4 Ultrasonography of Heart with Aorta, Transesophageal (ICD-10-PCS; 2020-02-19)
PROC: 5A1D70Z Performance of Urinary Filtration, Intermittent, Less than 6 Hours Per Day (ICD-10-PCS; 2020-02-19)
PROC: 5A1D70Z Performance of Urinary Filtration, Intermittent, Less than 6 Hours Per Day (ICD-10-PCS; 2020-02-20)
PROC: 5A1D70Z Performance of Urinary Filtration, Intermittent, Less than 6 Hours Per Day (ICD-10-PCS; 2020-02-22)
PROC: 5A1D70Z Performance of Urinary Filtration, Intermittent, Less than 6 Hours Per Day (ICD-10-PCS; 2020-02-24)
PROC: 5A1D70Z Performance of Urinary Filtration, Intermittent, Less than 6 Hours Per Day (ICD-10-PCS; 2020-02-26)
PROC: 02HV33Z Insertion of Infusion Device into Superior Vena Cava, Percutaneous Approach (ICD-10-PCS; 2020-02-26)
DX: A41.1 Sepsis due to other specified staphylococcus (principal); G92 Toxic encephalopathy; N18.6 End stage renal disease; I33.0 Acute and subacute infective endocarditis; N25.81 Secondary hyperparathyroidism of renal origin; E87.1 Hypo-osmolality and hyponatremia; Z99.2 Dependence on renal dialysis; J44.9 Chronic obstructive pulmonary disease, unspecified; Z20.828 Contact with and (suspected) exposure to other viral communicable diseases; I48.91 Unspecified atrial fibrillation; E87.6 Hypokalemia; E83.39 Other disorders of phosphorus metabolism; G47.33 Obstructive sleep apnea (adult) (pediatric); Z68.30 Body mass index [BMI] 30.0-30.9, adult; F03.90 Unspecified dementia, unspecified severity, without behavioral disturbance, psychotic disturbance, mood disturbance, and anxiety; Z79.01 Long term (current) use of anticoagulants; I50.9 Heart failure, unspecified; I11.0 Hypertensive heart disease with heart failure
CPT/HCPCS: 0241U; 36415; 36569; 36600; 70450; 70551; 71045; 74150; 76770; 80048; 80053; 80069; 80202; 81001; 82140; 82803; 82947; 83605; 83735; 83880; 84484; 85014; 85018; 85025; 85610; 85730; 87040; 87070; 87077; 87186; 87205; 89051; 93005; 93010; 93306; 93312; 93325; 94762; 96365; 96366; 96367; 96372; 96375; 96376; 97110; 97129; 97161; 97164; 97165; 97530; 97535; 99152; 99285-25; C1751; C1894; G0378; G0480; J0692; J0881; J1956; J2020; J2250; J2310; J3010; J3370; J3480; J7040; J7050; J7060; U0004